=== PATIENT | male | born 1990 | race Caucasian/White ===

== ENCOUNTER 2018-01-03 07:55 | Emergency (ER) | payer OTHER ==
[2018-01-03] MEDS: LIDOCAINE/MYLANTA 40 ML BTL PO (08:37)
[2018-01-03] MEDS: BELLADONNA/PHENOBARBITAL TAB PO (08:37)
[2018-01-03] MEDS: FAMOTIDINE 20 MG TAB PO (08:37)
[2018-01-03] MEDS: LIDOCAINE 1% (MPF) 5 ML VIAL INJ (08:38)
[2018-01-03] MEDS: ONDANSETRON (ODT) 4 MG TAB ODT (08:38)
== END 2018-01-03 09:26 | disposition home or self-care (01) ==
LOC: FTE 07:55
DX: K29.00 Acute gastritis without bleeding (principal)
CPT/HCPCS: 99283; Z7502